=== PATIENT | female | born 1975 | race Caucasian/White ===

== ENCOUNTER 2017-10-09 22:06 | Emergency (ER) | payer OTHER ==
[~2017-10-09] VITALS: Ht 160 cm; Wt 50.8 kg
[~2017-10-09 22:06] MED LIST: FLEXERIL10 MG PO; NAPROXEN500 MG PO; PERCOCET 325 MG1 TA2 PO
[2017-10-09 23:07] LABS: ABSOLUTE BASOPHIL COUNT 0.1 /CUMM (0.0-0.2); ABSOLUTE EOSINOPHIL COUNT 0.1 /CUMM (0.0-0.7); ABSOLUTE GRANULOCYTE CT 6.8 /CUMM (1.4-6.5); ABSOLUTE LYMPH COUNT 2.8 /CUMM (1.2-3.4); BASOPHIL % 0.5 % (0.0-2.0); EOSINOPHIL % 0.9 % (0-5); GRANULOCYTE % 63.3 % (42.2-75.2); HEMATOCRIT 40.2 % (37-47); MEAN CORPUSCULAR HGB 30.7 PG (27.0-31.0); MEAN CORPUSCULAR HGB CONC 33.2 G/DL (33.0-37.0); MEAN CORPUSCULAR VOLUME 92.6 FL (81.0-99.0); MEAN PLATELET VOLUME 9.1 FL (7.4-10.4); PLATELET COUNT 270 /CUMM (130-400); RBC DISTRIBUTION WIDTH 14.1 % (11.5-14.5); RED BLOOD CELL CT 4.34 /CUMM (4.20-5.40); WHITE BLOOD CELL COUNT 10.7 /CUMM (4.8-10.8)
--- NOTE | 2017-10-09 23:07 | ED GI/GU/ABDOMINAL COMPLAINT ---
History of Present Illness General Chief Complaint: Abdominal Pain/Flank Pain Stated Complaint: ABDOMINAL PAIN Source: patient Exam Limitations: no limitations Vital Signs & Intake/Output Vital Signs & Intake/Output Vital Signs Date Time Temp Pulse Resp B/P B/P Pulse O2 O2 Flow FiO2 Mean Ox Delivery Rate 10/10 0057 98.2 94 18 118/81 97 Room Air 10/09 2234 97.9 112 18 124/79 99 Room Air ED Intake and Output 10/10 0000 10/09 1200 Intake Total Output Total Balance Patient 112 lb Weight Allergies Coded Allergies: MDX - Codeine (CODEINE) (UNKNOWN 12/18/12) Reconcile Medications CYCLOBENZAPRINE HCL (Flexeril) 10 MG TABLET 10 MG PO TID PRN SPASM Ibuprofen 600 MG TABLET 1 TAB PO TID PRN pain with food Magnesium Citrate 296 ML SOLUTION 296 ML PO TID PRN constipation Naproxen 500 MG TABLET 500 MG PO BID PRN PAIN OXYCODONE HCL/ACETAMINOPHEN (Percocet 5-325 MG Tablet) 325 MG/5 MG TAB 1 TAB PO Q4-6 PRN PAIN Triage Note: 42F WITH PERIUMBILICAL PAIN WITH DISTENTION/BLOATING X1 DAY, CONSTANT WITH WORSENING EXACERBATIONS. +GUARDING AND PAIN WORSE WITH MOVEMENT. UNIMPROVED BY MULTIPLE MED ATTEMPTS. DENIES BLACK/BLOODY STOOLS, LAST BM YESTERDAY. Triage Nurses Notes Reviewed? yes ? n Is pt currently ? No HPI: 42 yo woman periumbilical abdominal pain "all day" without nausea, vomiting, diarrhea, fever, dysuria, vaginal symptoms. She notes that she often goes many days with out a bowel movement. Past History Travel History Traveled to [place] past 21 day No Medical History Any Pertinent Medical History? see below for history Gastrointestinal: constipation Influenza Vaccine: 11/12/11 Surgical History Surgical History: bilateral tubal ligation Psychosocial History What is your primary language Armenian Tobacco Use: Never used ETOH Use: occasional use Illicit Drug Use: denies illicit drug use Family History Hx Contributory? No Review of Systems Review of Systems Constitutional: Reports: no symptoms. EENTM: Reports: no symptoms. Respiratory: Reports: no symptoms. Cardiovascular: Reports: no symptoms. GI: Reports: no symptoms. Genitourinary: Reports: no symptoms. Musculoskeletal: Reports: no symptoms. Skin: Reports: no symptoms. Neurological/Psychological: Reports: no symptoms. Hematologic/Endocrine: Reports: no symptoms. Immunologic/Allergic: Reports: no symptoms. All Other Systems: Reviewed and Negative Physical Exam Physical Exam Gastrointestinal: focal tenderness at periumbilical region, mid epigastrum, no ruq, no rlq tenderness. Comments: Physical Exam Physical Exam General Appearance: well developed/nourished, no apparent distress Head: atraumatic, normal appearance Eyes: Bilateral: normal appearance. Ears, Nose, Throat: normal pharynx, normal ENT inspection Neck: normal inspection, supple, full range of motion Respiratory: normal breath sounds, chest non-tender, no respiratory distress, quiet respiration, lungs clear Cardiovascular: regular rate/rhythm Gastrointestinal: see above Back: normal inspection, normal range of motion Extremities: normal inspection, normal capillary refill, normal range of motion, no edema Neurologic/Psych: no motor/sensory deficits, awake, alert, oriented x 3 Skin: intact, normal color, warm/dry Core Measures ACS in differential dx? No Sepsis Present: No Sepsis Focused Exam Completed? No Progress Differential Diagnosis: umbilical hernia vs appy vs other. Plan of Care: Orders Procedure Date/time Status Add-on Test (ER Only) 10/09 2308 Active URINALYSIS 10/09 2308 Complete HUMAN BETA HCG SCREEN 10/09 2258 Complete TROPONIN LEVEL 10/09 2234 Complete LIPASE 10/09 2234 Complete HEPATIC FUNCTION PANEL 10/09 2234 Complete CBC WITHOUT DIFFERENTIAL 10/09 2234 Complete BASIC METABOLIC PANEL 10/09 2234 Complete AMYLASE 10/09 2234 Complete EKG 10/09 2234 Active Laboratory Tests 10/09/17 2340: Urine Color YEL, Urine Clarity CLEAR, Urine pH 6.0, Ur Specific [place] 1.015, Urine Protein NEG, Urine Ketones NEG, Urine Nitrite NEG, Urine Bilirubin NEG, Urine Urobilinogen 0.2, Ur Leukocyte Esterase NEG, Ur Microscopic SEDIMENT EXAMINED, Urine RBC 1-3, Urine WBC RARE, Ur Epithelial Cells MOD H, Urine Bacteria RARE H, Urine Hemoglobin TRACE-INTACT, Urine Glucose NEG 10/09/172258: Anion Gap 10, Estimated GFR > 60, BUN/Creatinine Ratio 15.0, Glucose 98, Calcium 9.4, Total Bilirubin 0.3, Direct Bilirubin 0.2, AST 15, ALT 21, Alkaline Phosphatase 48, Troponin I < 0.01, Total Protein 7.0, Albumin 4.2, Amylase 54, Lipase 42, Total Beta HCG NEGATIVE, CBC w Diff NO MAN DIFF REQ, RBC 4.34, MCV 92.6, MCH 30.7, MCHC 33.2, RDW 14.1, MPV 9.1, Gran % 63.3, Lymphocytes % 26.4, Monocytes % 8.9, Eosinophils % 0.9, Basophils % 0.5, Absolute Granulocytes 6.8 H, Absolute Lymphocytes 2.8, Absolute Monocytes 1.0 H, Absolute Eosinophils 0.1 , Absolute Basophils 0.1 Initial ED EKG: sinus no acute changes. Departure Departure Disposition: HOME OR SELF CARE Condition: Stable Clinical Impression Primary Impression: Abdominal pain Referrals: Patient Has No Primary Care Dr (PCP/Family) Departure Forms: Customer Survey General Discharge Information Prescriptions: Current Visit Scripts Magnesium Citrate 296 ML PO TID PRN constipation #6 ML Ibuprofen 1 TAB PO TID PRN pain #30 TAB with food Comments 10/10/17, 2:19am... pt with benign labs, benign ct scan... pt with focal muscular type tenderness periumbilically... no obvious hernia.... pt safe for discharge.... close follow up advised.
[2017-10-10 00:57] VITALS: BP 118/81
--- NOTE | 2017-10-10 02:19 | CT SCAN REPORT ---
EXAMINATION: CT ABDOMEN AND PELVIS WITHOUT CONTRAST CLINICAL INFORMATION: 42-year-old female patient with periumbilical pain. COMPARISON: None TECHNIQUE: Multidetector volumetric imaging was performed from the superior aspect of the liver through the pubic symphysis. Sagittal and coronal reformatted images were obtained on the technologist's workstation. DLP: 243 mGy-cm FINDINGS: Charge Hand: No obstruction. LUNG BASES: The visualized lung bases are unremarkable. LIVER, GALLBLADDER, AND BILIARY TREE: The liver is normal in size, shape, and attenuation. No focal hepatic lesion or biliary ductal dilatation is present. The gallbladder is unremarkable with no evidence of radiopaque gallstones, gallbladder wall thickening, or obvious pericholecystic inflammatory changes. PANCREAS: Unremarkable. SPLEEN: Unremarkable. ADRENAL GLANDS: Unremarkable. KIDNEYS AND URETERS: The kidneys are normal in size, shape, and attenuation. No hydronephrosis, hydroureter, or calculi seen. No perinephric stranding. BLADDER: Empty. GASTROINTESTINAL TRACT: The small and large bowel are unremarkable. The appendix is unremarkable. A small radiopaque object is seen in the duodenum at the junction of the second and third portions. This foreign body was most likely recently ingested. ABDOMINAL WALL: No significant hernia is appreciated. Small fat-containing right inguinal hernia is present. LYMPH NODES: Normal. VASCULAR: Unremarkable. PELVIC VISCERA: Unremarkable. OSSEOUS STRUCTURES: There is degenerative disc disease at L5-S1. IMPRESSION: No significant abnormality.
[2017-10-10] MEDS ORDERED: IBUPROFEN600 M1 PO (02:20)
[2017-10-10] MEDS ORDERED: MAGNESIUM CITR296 ML PO (02:20)
== END 2017-10-10 02:45 ==
LOC: ERH 22:06
PROVIDERS: Pediatrics
DX: R10.33 Periumbilical pain (principal); R14.0 Abdominal distension (gaseous)
CPT/HCPCS: 74176; 81001; 93005; 93010; 96372; J1885